=== PATIENT | female | born 1940 | race Caucasian/White ===

== ENCOUNTER 2021-01-29 18:47 | Day surgery (SDCO) | payer MEDICARE ==
[~2021-01-29] VITALS: Ht 160 cm; Wt 69.4 kg
[~2021-01-29 18:47] MED LIST: ASPIRIN325 MG PO; ATENOLOL25 MG PO; CEFDINIR300 MG PO; CYMBALTA 30MG C30 MG PO; IMDUR 30MG TABL30 MG PO; LIVALO2 MG PO; NEURONTIN300 MG PO; NORCO 5-325 TA1 EACH PO; NORVASC5 MG PO; SYNTHROID100 MCG PO; TOUJEO INSULIN SQ; ULTRAM50 MG PO; XANAX0.25 MG PO
[2021-01-30] MEDS ORDERED: ZETIA10 MG PO (01:23)
[2021-01-30] MEDS ORDERED: LANTUS **100 UNITS/ SC (01:26)
[2021-01-30] MEDS ORDERED: LASIX40 MG PO (01:27)
[2021-01-30 03:58] LABS: BASOPHIL 0.9 % (0-2); EOSINOPHIL 1.9 % (0-7); HCT 40.3 % (37.0-47.0); HGB 13.3 g/dl (12.5-16.0); LYMPHOCYTE 23.5 % (15-48); MCH 29.4 pg (25.0-31.0); MCV 89.2 fL (78.0-100.0); MPV 10.2 fL (6.0-9.5); NEUTROPHIL 63.4 % (41-80); NRBC 0; PLT 165 K/uL (150-400); RBC 4.52 M/uL (4.20-5.40); RDW 13.1 % (11.5-14.0)
[2021-01-30 04:12] LABS: INR 1.11 (0.9-1.2); PROTHROMBIN TIME 13.7 SECONDS (11.8-13.4); PTT 32.4 SECONDS (24.4-34.7)
[2021-01-30 04:24] LABS: ALBUMIN 3.1 g/dL (3.4-5.0); BILIRUBIN - TOTAL 0.5 mg/dL (0.2-1.0); BUN/CREAT RATIO (CALC) 9.8 RATIO; CREATININE 0.92 mg/dL (0.51-0.95); GLOBULIN (CALCULATION) 2.9 g/dL; MAGNESIUM 1.7 mg/dL (1.8-2.4); PHOSPHORUS 4.1 mg/dL (2.6-4.7); POTASSIUM 3.7 mmol/L (3.5-5.1)
--- NOTE | 2021-01-31 11:51 | NUR ---
01/31/21 Ms. Torres lives alone and is independent in the home and community. She uses a cane at times. Ms. Torres was provided with information re: emergency alert systems per her request.
[2021-01-31] MEDS ORDERED: PROTONIX 40MG T40 MG PO (14:15)
[2021-01-31] MEDS ORDERED: CARAFATE1 GM PO (14:15)
[2021-01-31] MEDS ORDERED: ZOFRAN4 M1 PO (14:49)
== END 2021-01-31 15:28 | disposition home or self-care (01) ==
LOC: FTCU 18:47
PROVIDERS: Nurse Practitioner; ADMIT Internal Medicine
DX: K31.9 Disease of stomach and duodenum, unspecified (principal); K29.80 Duodenitis without bleeding; K27.9 Peptic ulcer, site unspecified, unspecified as acute or chronic, without hemorrhage or perforation; I10 Essential (primary) hypertension; J44.9 Chronic obstructive pulmonary disease, unspecified; E03.9 Hypothyroidism, unspecified; E11.9 Type 2 diabetes mellitus without complications; I25.10 Atherosclerotic heart disease of native coronary artery without angina pectoris; R00.1 Bradycardia, unspecified; K81.0 Acute cholecystitis; F41.9 Anxiety disorder, unspecified; Z95.5 Presence of coronary angioplasty implant and graft; Z87.891 Personal history of nicotine dependence; Z79.82 Long term (current) use of aspirin; Z88.5 Allergy status to narcotic agent; Z88.8 Allergy status to other drugs, medicaments and biological substances; Z20.822 Contact with and (suspected) exposure to COVID-19
CPT/HCPCS: 36415; 71045; 76705; 80053; 82150; 82962; 83735; 83880; 84100; 85025; 85610; 85730; 88305; 93005; 94010; 94760; C9113; G0378; J1170; J2250; J2405; J2704; J3475; J7030; J7120; U0002